=== PATIENT | female | born 1970 | race Caucasian/White ===

== ENCOUNTER 2024-12-13 12:35 | Outpatient (CLI) | payer OTHER, SELFPAY ==
--- NOTE | ~2024-12-13 | CT_ITS ---
CT of the Abdomen and Pelvis: Indication: Abdominal pain Technique: 2.5 mm axial scans were obtained through the abdomen and pelvis following intravenous adm inistration of 100 cc of Omnipaque 350. Dose reduction technique was used on this scan by utilizing a utomated exposure control and iterative reconstruction technique. The dose-length product (DLP) was 3 74.44 mGy-cm. Findings: Scans through the lung bases are unremarkable. The liver, spleen, pancreas, gallbladder, adrenals and kidneys are within normal limits. No evidence of aortic aneurysm. No lymphadenopathy. No bowel obstruction or bowel wall thickening. There is no evidence to suggest acute appendicitis. Images through the pelvis were performed. Urinary bladder unremarkable. No pelvic mass seen. No ascit es. Impression: No significant abnormalities seen. Reviewed, dictated and finalized at [facility]. ESS AND WELLNESS INSTRUCTOR Impression: No significant abnormalities seen.
--- NOTE | ~2024-12-13 | US_ITS ---
EXAMINATION: US soft tissue groin LT DATE: 12/13/2024 12:49 INDICATION: Left inguinal mass. TECHNIQUE: Multiple grayscale and Doppler ultrasound images of the left groin were obtained. COMPARISON: CT abdomen and pelvis 12/13/2024 FINDINGS: There is no abnormal mass or lymphadenopathy in the patient's area of concern in left ingui nal region. No hernia. IMPRESSION: 1. No abnormal mass or lymphadenopathy in the patient's area of concern in left inguinal region. Reviewed, dictated and finalized at location B. OR BACK END JAVA DEVELOPER
== END 2024-12-13 12:36 | disposition home or self-care (01) ==
LOC: MICIMG 12:36
PROVIDERS: PCP Family Medicine; Visit Provider Physician Assistant
DX: R10.32 Left lower quadrant pain (principal); R19.09 Other intra-abdominal and pelvic swelling, mass and lump
CPT/HCPCS: 74177; 76882; Q9967

== ENCOUNTER 2025-04-19 18:56 | Emergency (ER) | payer OTHER, SELFPAY ==
--- NOTE | ~2025-04-19 | CT_ITS ---
CT brain wo con Ordering provider: Fredrick Uriarte MD History: 54 years Female with . closed head injury . Comparison: None. Technique: CT of the head without contrast. Radiation reduction technique utilized. The dose-length p roduct was 605.33 mGy-cm. FINDINGS: BRAIN PARENCHYMA AND CSF SPACES: No midline shift, mass effect or hemorrhage. The brain parenchyma a nd CSF spaces are otherwise normal. VISUALIZED PARANASAL SINUSES: Well aerated. MASTOIDS: Well aerated. BONES: The bones appear intact. SOFT TISSUES: Visualized nasopharynx is normal. Superficial soft tissues are normal. IMPRESSION: No acute intracranial findings. Reviewed, dictated and finalized at location A.
[2025-04-19 19:00] VITALS: BP 151/81; PULSE 76; RESP 18; TEMP 36.6; O2SAT 99
[2025-04-19 19:26] VITALS: O2SAT 99
--- NOTE | 2025-04-19 19:48 | ED_ITS ---
HPI - Head Injury General Chief complaint: Head Injury Stated complaint: bumped head Time Seen by Provider: 04/19/25 19:12 History of Present Illness HPI Narrative: 54-year-old female with no pertinent past medical history presenting to the emergency department for evaluation of closed head injury that occurred on . Patient states that she smacked the back of her head against ache counter overhang quite harshly and she has been having some nauseousness and headache since. She states she feels foggy. Denies any loss consciousness or blood thinner use. She denies any other symptoms such as incoordination difficulty ambulating. No headache presently, hematoma formation or any bleeding. Does not take any anticoagulation medications. Previous to this she was otherwise in her normal state of health with no history traumatic brain injuries or concussions to her knowledge. Related Data Allergies Allergy/AdvReac Type Severity Reaction Status Date / Time fluoxetine (From [employer]) AdvReac Intermediate Nausea and Verified 04/19/25 19:29 Vomiting Review of Systems Review of Systems: As reviewed above in HPI Exam Narrative: GENERAL: [Well-appearing, well-nourished, and in no acute distress.] HEAD: [Normocephalic, atraumatic.] EYES: [PERRLA and EOMI.] ENT: Nares clear, no rhinorrhea or epistaxis. Mucous membranes moist. NECK: Supple. CHEST: [Clear to auscultation. No respiratory distress.] HEART: [Regular rate and rhythm]. No murmur heard. [Normal peripheral pulses.] ABDOMEN: [Soft, nondistended], [nontender], [No rigidity or guarding] EXTREMITIES: Normal range of motion. [No edema.] SKIN: Warm, dry, no rash. NEURO: [No focal deficits]. Alert and oriented [x3.] PSYCH: [Normal mood and affect.] Course Vital Signs Vital signs: Vital Signs Temperature 36.6 C 04/19/25 19:00 Pulse Rate 76 04/19/25 19:00 Respiratory Rate 18 04/19/25 19:00 Blood Pressure 151/81 H 04/19/25 19:00 Pulse Oximetry 99 04/19/25 19:00 Oxygen Delivery Room Air 04/19/25 19:00 Temperature 36.6 C 04/19/25 19:00 Pulse Rate 76 04/19/25 19:00 Respiratory Rate 18 04/19/25 19:00 Blood Pressure 151/81 H 04/19/25 19:00 Pulse Oximetry 99 04/19/25 19:26 Oxygen Delivery Room Air 04/19/25 19:26 MDM - Head Injury MDM Narrative Medical decision making narrative: 54-year-old female with no pertinent past medical history presenting to the emergency department after a closed head injury that occurred several days ago. She hit the back of her head against a counter quite harshly while she was ascending while bending over. She states she has been feeling foggy and nauseous since then but has not had any vomiting. No present headache. No blood thinner use. She is a benign normal neurological examination with vital signs they were reassuring without any significant hypertension, tachycardia, fever, hypoxia. Given the mechanism injury but reassuring examination suspicion presently is for up concussion versus postconcussive syndrome versus less likely skull fracture or traumatic brain injury/intracranial pathology such as a bleed. CT that was obtained. Patient will be re-evaluated afterwards and discharged upon negative imaging with return precautions and concussion care instructions. CT scan was unremarkable for any injury. Patient was encouraged to refrain from strenuous or exertional activities and given concussion care instructions. She was discharged home at this time with return precautions and follow-up instructions with PCP. Medical Records Attestation: I reviewed the patient's medical records. Imaging Data Attestation: I personally reviewed and interpreted this imaging study as follows: My impression: Impressions Head CT 04/19/25 19:52 IMPRESSION: No acute intracranial findings. Discharge Plan Discharge Clinical Impression: Closed head injury, Concussion without loss of consciousness Patient Disposition: Home Condition: Stable Instructions: Antibiotic Form, Concussion (ED), Post Concussion Syndrome (ED) Additional Instructions: Follow-up with your regular doctor, symptoms of a concussion last several weeks. Take Tylenol for any aches or pains in the head or neck. Return with any emergent concerns. Patient Language: Latvian Follow-up/Referrals: Gorge Hahn M.D. [Primary Care Provider] - Time of Disposition: 20:13
== END 2025-04-19 22:22 | disposition home or self-care (01) ==
PROVIDERS: Emergency Provider Student in an Organized Health Care Education/Training Program; PCP Family Medicine
DX: S06.0X0A Concussion without loss of consciousness, initial encounter (principal); W22.01XA Walked into wall, initial encounter
CPT/HCPCS: 70450; 99284

== ENCOUNTER 2025-04-29 11:15 | Emergency (ER) | payer OTHER, SELFPAY ==
--- NOTE | ~2025-04-29 | CT_ITS ---
EXAMINATION: CT brain wo con DATE: 04/29/2025 12:02 INDICATION: Head injury presenting with dizziness and weakness TECHNIQUE: Computed tomography (CT) of the head was performed without intravenous contrast. Sagittal and coronal reconstructions were performed. The mA was adjusted according to patient size. Iterative reconstruction technique was employed. The dose-length product was 605.33 mGy-cm. COMPARISON: head CT dated 04/19/25 FINDINGS: No fracture. No acute intracranial hemorrhage, acute infarction or abnormal extra axial fluid collect ion. Ventricles are normal and symmetric. No mass/mass effect. The orbits, paranasal sinuses and mast oid air cells are normal. IMPRESSION: 1. No fracture or acute intracranial process. Reviewed, dictated and finalized at location A.
[2025-04-29 11:22] VITALS: BP 157/92; PULSE 99; RESP 10; TEMP 36.6; O2SAT 100
[2025-04-29 11:31] VITALS: PULSE 93
--- NOTE | 2025-04-29 11:50 | ECG_ITS ---
Test Date: 2025-04-29 11:28:24 Measurements Intervals [place] Rate: 96 P: 61 AR: 119 QRS: 33 QRSD: 92 T: 39 QT: 338 QTc: 428 Interpretive Statements SINUS RHYTHM WITH SHORT AR INTERVAL INCOMPLETE RIGHT BUNDLE BRANCH BLOCK BORDERLINE ST ABNORMALITY- INF/LAT LEADS BORDERLINE ECG No previous ECG available for comparison Electronically Signed On 04-29-2025 12:09:03 CDT by Issac Javier D.O.
[2025-04-29] MEDS: SODIUM CHLORIDE 0.9% IV 1,000 ML 999 ML IV CONT (11:57)
--- NOTE | 2025-04-29 12:08 | ED_ITS ---
HPI - Weakness General Chief complaint: Weakness Stated complaint: post concussion symptoms Time Seen by Provider: 04/29/25 11:25 Source: patient, RN notes reviewed and old records reviewed Mode of arrival: ambulatory Limitations: no limitations History of Present Illness HPI Narrative: THis is a 54 year old female who presents for evaluation of weakness and lightheadedness. She states that [facility] she suffered a head injury. She accidentally hit her head on granite and she developed symptoms of dizziness, tinnitis, weakness. She was evaluated in [place] [facility] and she had negative CT brain. She was diagnosed with concussion. She states she was doing better until yesterday. She reports she was extremely active over the weekend and she woke up with weakness yesterday. She states she was having trouble getting out of bed and she was lightheaded. She reports this morning she still has lightheadedness with standing. She denies focal weakness, headache, chest pain, shortness of breath. Related Data Allergies Allergy/AdvReac Type Severity Reaction Status Date / Time fluoxetine (From Prozac) AdvReac Intermediate Nausea and Verified 04/19/25 19:29 Vomiting PMFSH Past Medical History Medical History (Updated 04/29/25 @ 14:15 by Kim Renee MD) Patient denies medical problems Exam 2 Const: General: no acute distress and alert Nutritional Appearance: well nourished Orientation/consciousness: patient oriented x3 HENMT: Head: normal to inspection Ears: external ears normal and TM's normal bilaterally Face and sinus: normal facial exam Eyes: Pupils: Equal, round and reactive pupils present EOM: EOMs intact bilaterally Neck: Neck: normal visual inspection Chest: Chest palpation & inspection: normal inspection of the chest Resp: Effort & Inspection: normal respiratory effort Auscultation: clear to auscultation bilaterally Cardio: Rate: regular rate Rhythm: regular rhythm Heart sounds: no murmurs GI: GI Palp: Yes Soft to palpation, No Tenderness to palpation present (GI), No Guarding due to palpation present (GI) and No Rigid due to palpation A uscultation: normal bowel sounds Skin: General skin exam: normal color Rashes: no rashes Neuro: General: patient oriented x3 and moves all extremities Cranial nerves: Yes CN's II-XII intact bilaterally, Yes Equal, round and reactive pupils present and Yes Nystagmus not present Cognition (Neuro): normal cognition Speech: normal speech Gait exam (Neuro): Normal gait present Motor exam (neuro): 5/5 motor strength present throughout, Pronator motor function not present and No tremor noted Sensory Exam: normal sensation Coordination: f [id number] test normal and [id number]-[id number] test normal Extrem: General: normal to inspection Psych: Mental Status: mental status grossly normal Affect: normal affect Attitude: cooperative Course Reevaluation(s) Reevaluation #1: Patient states she feels better. I spoke with her about labs and possible causes of her symptoms. She reports blood pressure was 100/50 so she may have been lightheaded due to dehydration. She was given IV fluids. I discussed no sign of arrhythmia at this point. No sign of stroke on examination. She will follow up with her PCP regarding her concerns. Date: 04/29/25 Time: 14:12 Vital Signs Vital signs: Vital Signs Temperature 97.9 F 04/29/25 11:22 Pulse Rate 99 04/29/25 11:22 Respiratory Rate 10 L 04/29/25 11:22 Blood Pressure 157/92 H 04/29/25 11:22 Pulse Oximetry 100 04/29/25 11:22 Oxygen Delivery Room Air 04/29/25 11:22 Temperature 97.9 F 04/29/25 11:22 Pulse Rate 79 04/29/25 14:48 Respiratory Rate 12 04/29/25 14:48 Blood Pressure 148/85 H 04/29/25 14:48 Pulse Oximetry 100 04/29/25 14:48 Oxygen Delivery Room Air 04/29/25 11:22 MDM - Weakness Differential Diagnosis Differential diagnosis: Likely acute myocardial infarction, anemia, hypoglycemia, sepsis and dehydration Medical Records Attestation: I reviewed the patient's medical records. Lab Data Attestation: I reviewed the patient's lab results. 04/29/25 11:56 04/29/25 11:56 Labs: Lab Results 04/29/25 Range/Units 11:56 WBC 8.4 (4.5-10.0) K/mm3 RBC 4.97 (4.2-5.4) M/mm3 Hgb 14.5 (12.0-15.0) g/dL Hct 44.5 (37.0-47.0) % MCV 89.5 (80-100) fl MCH 29.2 (26-34) pg MCHC 32.6 (32-36) g/dl RDW 13.3 (11.5-14.5) % Plt Count 267 (150-375) k/mm3 MPV 9.9 (7.4-10.4) fl Immature Gran % (Auto) 0.1 (0-0.5) % Neut % (Auto) 67.1 (45.5-73.1) % Lymph % (Auto) 25.7 (18.3-44.2) % [place] % (Auto) 6.1 (2.6-8.5) % Eos % (Auto) 0.5 (0-4.4) % Baso % (Auto) 0.5 (0.2-1.2) % Lymph # (Auto) 2.16 (0.9-3.2) K/mm3 [place] # (Auto) 0.5 (0.1-0.6) K/mm3 Eos # (Auto) 0.0 (0-0.3) K/mm3 Baso # (Auto) 0.0 (0.0-0.1) K/mm3 Abs Immat Gran (auto) 0.01 (0.00-0.031) K/mm3 Absolute Neuts (auto) 5.6 (1.3-6.7) K/mm3 Absolute Nucleated RBC 0.000 (0.0-0.012) K/mm3 Nucleated RBC % 0.0 (0.0-0.2) % PT 12.8 (11.1-14.7) Seconds INR 1.0 APTT 25.7 (22.3-36.8) Seconds Sodium 137 (137-145) mmol/L Potassium 3.6 (3.4-5.0) mmol/L Chloride 104 (98-107) mmol/L Carbon Dioxide 25 (22-30) mmol/L Anion Gap 8 (4-12) mmol/L BUN 9 (7-17) mg/dL Creatinine 0.66 L (0.7-1.0) mg/dL Estim Creat Clear Calc 77 ml/min Estimated GFR > 60 (59 - ) Glucose 110 (65-110) mg/dL Calcium 9.9 (8.4-10.2) mg/dL Total Bilirubin 0.5 (0.2-1.3) mg/dL AST 31 (14-36) U/L ALT 27 (6-35) U/L Alkaline Phosphatase 69 (38-126) U/L Troponin I < 0.012 (0.000-0.034) ng/mL Total Protein 8.3 H (6.3-8.2) g/dL Albumin 5.0 (3.5-5.1) g/dL Imaging Data Radiologist's impression: ITS Impressions Head CT 04/29/25 12:06 IMPRESSION: 1. No fracture or acute intracranial process. ECG Data EKG #1: Attestation: I personally reviewed and interpreted this ECG as follows: ECG completion date: 04/29/25 ECG completion time: 11:28 EKG Interpretation: normal rate, sinus rhythm (96) and NL axis Discharge Plan Discharge Clinical Impression: Dizziness Patient Disposition: Home Condition: Stable Instructions: General Patient Instructions, Post Concussion Syndrome (ED), Fatigue (ED) Additional Instructions: Stay hydrated follow up with your primary care provider Patient Language: Tamazight Follow-up/Referrals: Gorge Hahn M.D. [Primary Care Provider] -
[2025-04-29 12:10] LABS: Basophils Percent Auto 0.5 % (0.2-1.2); Eosinophils Percent Auto 0.5 % (0-4.4); Hematocrit 44.5 % (37.0-47.0); Hemoglobin 14.5 g/dL (12.0-15.0); Immature Granulocyte Absolute 0.01 K/mm3 (0.00-0.031); Immature Granulocyte Percent A 0.1 % (0-0.5); Lymphocytes Absolute Auto 2.16 K/mm3 (0.9-3.2); Lymphocytes Percent Auto 25.7 % (18.3-44.2); Mean Corpuscular HGB Conc 32.6 g/dl (32-36); Mean Corpuscular Hemoglobin 29.2 pg (26-34); Mean Corpuscular Volume 89.5 fl (80-100); Mean Platelet Volume 9.9 fl (7.4-10.4); Monocytes Absolute Auto 0.5 K/mm3 (0.1-0.6); Monocytes Percent Auto 6.1 % (2.6-8.5); Neutrophils Absolute Auto 5.6 K/mm3 (1.3-6.7); Neutrophils Percent Auto 67.1 % (45.5-73.1); Platelet Count Result 267 k/mm3 (150-375); Red Blood Count 4.97 M/mm3 (4.2-5.4); Red Cell Distribution Width 13.3 % (11.5-14.5); White Blood Count 8.4 K/mm3 (4.5-10.0)
[2025-04-29 12:21] LABS: Prothrombin Time 12.8 Seconds (11.1-14.7)
[2025-04-29 12:22] LABS: Alanine Aminotransferase 27 U/L (6-35); Alkaline Phosphatase 69 U/L (38-126); Anion Gap 8 mmol/L (4-12); Aspartate Amino Transferase 31 U/L (14-36); Bilirubin,Total 0.5 mg/dL (0.2-1.3); Blood Urea Nitrogen 9 mg/dL (7-17); Calcium 9.9 mg/dL (8.4-10.2); Carbon Dioxide 25 mmol/L (22-30); Chloride 104 mmol/L (98-107); Estimated CRCL calculation 77 ml/min; Estimated Glomerular Filt Rate > 60; Glucose 110 mg/dL (65-110); Partial Thromboplastin Time 25.7 Seconds (22.3-36.8); Potassium 3.6 mmol/L (3.4-5.0); Sodium 137 mmol/L (137-145); Total Protein 8.3 g/dL (6.3-8.2)
[2025-04-29 12:25] VITALS: BP 132/78; PULSE 88
[2025-04-29 12:26] VITALS: BP 126/84; BP 137/87; PULSE 88; PULSE 89; PULSE 94; RESP 18; O2SAT 99
[2025-04-29 12:38] LABS: Troponin I < 0.012 ng/mL (0.000-0.034)
[2025-04-29 14:48] VITALS: BP 148/85; PULSE 79; RESP 12; O2SAT 100
== END 2025-04-29 14:50 | disposition home or self-care (01) ==
PROVIDERS: Emergency Provider General Practice; PCP Family Medicine
DX: R42 Dizziness and giddiness (principal)
CPT/HCPCS: 36415; 70450; 80053; 84484; 85025; 85610; 85730; 93005; 96360; 99284; J7030

== ENCOUNTER 2025-05-26 12:39 | Outpatient (CLI) | payer OTHER, SELFPAY ==
--- NOTE | ~2025-05-26 | MR_ITS ---
EXAMINATION: MR brain/brain stem wo/w con DATE: 05/26/2025 13:49 INDICATION: Concussion TECHNIQUE: Magnetic resonance imaging (MRI) of the brain and brainstem was performed without and with 13 mL Multihance intravenous contrast. Sequences included sagittal and axial T1-weighted SE, axial d iffusion-weighted FS SE, axial 3D SWAN, axial T2-weighted FLAIR, and axial T2-weighted FSE. Postcontr ast axial and coronal T1-weighted SE was obtained. Apparent diffusion coefficient (ADC) maps were cre ated. COMPARISON: Head CT dated 04/29/2025 FINDINGS: There are no areas of restricted diffusion to suggest acute infarction. No intracranial hemorrhage or abnormal intracranial mass lesion. There are a few small scattered foci of of nonspecific increased T2-weighted signal intensity in the cerebral white matter, predominantly involving the deep and periv entricular white matter which is within normal limits for age and likely sequela of chronic small ves jessica ischemic disease. There are no intraparenchymal signal abnormalities seen on the other pulse sequ ences. The ventricles are symmetric and normal in size. There are no abnormal extra-axial fluid colle ctions. Flow voids are seen in the cerebral arteries on the T2-weighted sequences consistent with the ir expected patency. Visualized orbits and soft tissues are unremarkable. There are no areas of abnor mal enhancement on the post contrast images. IMPRESSION: 1. Normal for age brain with a few small scattered foci of nonspecific white matter T2 hyperintensity which could represent sequela of chronic small vessel ischemic disease. Reviewed, dictated and finalized at location B. IMPRESSION: 1. Normal for age brain with a few small scattered foci of nonspecific white ma tter T2 hyperintensity which could represent sequela of chronic small vessel is chemic disease.
--- OUTSIDE RECORDS SUMMARY | 2025-05-26 12:42 | XMS_ITS | Clinical Summary ---
Author Organization [facility] Address [facility] [place] [address] Care Team Providers Care Nail Specialist Name Role Phone Gorge Hahn MD Primary Care Provider [phone] Allergies No known active allergies Medications [place]-3 Fatty Acids (FISH OIL) 500 MG capsule Take 500 mg by mouth daily. Active red yeast rice extract 600 MG Cap Take 500 mg by mouth daily. Active Cyanocobalamin (VITAMIN B-12) 50 MCG Tab Active Ascorbic Acid (VITAMIN C) 100 MG tablet Take 5 tablets (500 mg total) by mouth daily. Active Vitamin D3 (CHOLECALCIFERO L) 50 mcg tablet Take 1 tablet (50 mcg total) by mouth daily. Active CALCIUM CARB-CHOLECALCI FEROL OR Take 1 tablet by mouth daily. Active Family History Medical History Relation Comments Breast Cancer Mother Relation Status Comments Father Mother Social History Tobacco Use Types Packs/Day Years Used Date Smoking Tobacco: Never Smokeless Tobacco: Never Tobacco Cessation:Counseling Given: Not Answered Alcohol Use Standard Drinks/Week Comments Yes 0 (1 standard drink = 0.6 oz pur e alcohol) Very Rarely Comments No Sex and Gender Information Value Date Recorded Sex Assigned at Not on file Legal Sex Female 10:31 AM CDT Gender Identity Not on file Sexual Orientation Not on file Last Filed Vital Signs Vital Sign Reading Time Taken Comments Blood Pressure 145/72 06/21/2023 3:14 PM CDT Pulse 71 06/21/2023 3:14 PM CDT Temperature 36 C (96.8 F) 06/21/2023 1:53 PM CDT Respiratory Rate 17 06/21/2023 3:14 PM CDT Oxygen Saturation 97% 06/21/2023 3:14 PM CDT Inhaled Oxygen Concentration - - Weight 63.5 kg (140 lb) 06/21/2023 11:57 AM CDT Height 167.6 cm (5' 6) 06/21/2023 11:57 AM CDT Body Mass Index 22.6 06/21/2023 11:57 AM CDT Plan of Treatment Health Maintenance Due Date Last Done Comments Colorectal Cancer Screening Colonoscopy (10 Years) 1969 Annual Physical 1972 Hepatitis C 1987 DTaP, Tdap and Td Vaccines (1 - Tdap) 1988 Hepatitis B Vaccines (1 of 3 - 19+ 3-dose series) 1988 Pneumococcal Vaccine: 50+ Years (1 of 1 - PCV) 2019 Zoster Vaccines (1 of 2) 2019 COVID-19 Vaccine (1 - season) 2024 Cervical Cancer Screening Pap Smear (Age 30 to 64) Every 3 Years 02/25/2026 02/25/2023 Mammogram Screening 05/29/2026 05/29/2024, 09/08/2022, 03/20/2021, Additional history exists Cervical Cancer Screening Pap with HPV Testing (Age 30 to 64) Every 5 Years 02/26/2028 02/25/2023 Cervical Cancer Screening with HPV 02/26/2028 Meningococcal B Vaccine Aged Out No l onger eligible based on patient's age to complete this topic Meningococcal Vaccine Aged Out No jordon ayana eligible based on patient's age to complete this topic RSV Immunizations Under 20 Months Aged Out No longer eligible based on patient's age to complete this topic Procedures Procedure Name Priority Date/Time Associated Diagnosis Comments MG SCREENING W KOTA BOOKER DIGI Routine 05/29/2024 10:50 AM CDT Visit for screening mammogram HUMAN PAPILLOMAVIRUS, HIGH-RISK TYPES Routine 02/25/2023 12:00 PM CDT CYTOPATH CERV/VAG THIN LAYER Routine 02/25/2023 7:54 AM CDT Post-menopausal bleeding from Last 3 Months or Most Recently Relevant to Health Maintenance Results * MG SCREENING W KOTA BOOKER DIGI (05/29/2024 10:50 AM CDT) Anatomical Region Laterality Modality Breast Bilateral Mammography 05/30/2024 7:28 AM CDT Impressions 05/30/2024 7:31 AM CDT ===== IMPRESSION: ===== 1. Stable mammographic appearance with no new findings to suggest malignancy in either breast. Assessment: ACR BI-RADS 2 - BENIGN FINDING(S) Recommendation: 1:Routine Screening Bilateral Comments: Ordered By: GORGE HAHN Interpreted By: Ro Jaramillo, 05/30/2024 7:28 AM Narrative 05/30/2024 7:31 AM CDT EXAMINATION: Digital bilateral screening mammogram with 3-D tomosynthesis EXAM DATE/TIME: 05/29/2024 10:50 AM REASON FOR EXAM: Routine screening Benign right breast biopsy 13 years ago.. Mother with breast carcinoma at age 47 COMPARISON: 03/20/2021.. 09/08/2022 Technique: Digital screening mammography of both breasts was performed in addition to 3-D Tomosynthesis technique. This study was read with the assistance of a computer-aided detection system. Tissue density: There are scattered areas of fibroglandular density. Findings: Stable slightly asymmetric benign tissue in the upper outer quadrant of the right breast. There is no new focal asymmetry, dominant mass lesion, area of skin thickening, or cluster of suspicious appearing calcifications in either breast to suggest malignancy. us Gorge Hahn MD MAMMO Final Result * HUMAN PAPILLOMAVIRUS, HIGH-RISK TYPES (02/25/2023 12:00 PM CDT) SPEC DESCRIPTION CERVICAL/END OCERVICAL 03/01/2023 8:15 AM CDT [facility] HPV DNA HIGH RISK NEGATIVE NEGATIVE 03/02/2023 2:05 PM CDT [facility] Comment:SEE CYTOLOGY REPORT 02/25/2023 12:0 0 PM CDT us Shefali Jacobo MD PATHOLOGY/CYTOLOGY ORDERABLES Final Result [facility] [address] [place] [address], * Cytopath Cerv/Vag Thin Layer (02/25/2023 7:54 AM CDT) THIN PREP PAP [facility] [address] [place] [address] Department of Pathology Pathology Report CERVICAL/VAGINAL PAP SMEAR REPORT Name: CAITIE COHEN Age: 807/13/1970 (Age: 52) Location: [facility] Sex: F Collected Date: 02/25/2023 [facility] #: [id number] Date Received: 03/01/2023 Date Reported: 03/09/2023 Provider: SHEFALI JACOBO MD INTERPRETATION CERVICAL/ENDOCERVI CHRIS: SATISFACTORY FOR EVALUATION. ENDOCERVICAL/TRANS FORMATION ZONE COMPONENT PRESENT. NEGATIVE FOR INTRAEPITHELIAL LESION OR MALIGNANCY. NEGATIVE FOR HIGH RISK HPV. The FDA approved Aptima HPV assay is an in vitro nucleic acid amplification test for the qualitative detection of E6/E7 viral messenger RNA (mRNA) from 14 high-risk types of human papillomavirus (HPV) in cervical specimens. The high-risk HPV types detected by the assay include: 16,18,31,33,35,39, 45,51,52,56,58,59, 66, and 68. Electronically Signed Out [facility] Pan (ASCP) CLINICAL HISTORY SCREENING PAP TEST POST MENOPAUSAL BLEEDING ThinPrep Pap Test with screening HR HPV testing requested, with reflex HPV 16/18 genotyping on negative cytology, positive HR HPV Date of Last Menstrual Period: UNKNOWN Menstrual Status: Post-Menopausal SPECIMEN SUBMITTED CERVICAL/ENDOCERVI CHRIS Specimen Received:1 Thin Prep Vial, Image Assisted Pap (SMD) Please note: The Pap smear is not a diagnostic test. It is a screening test. Negative results on combined screening (Pap test and HPV-DNA) have a high negative predictive value (99.1-100 percent) for cervical cancer. The pap test is not effective in detecting cervical adenocarcinoma. [facility] 02/25/2023 7:54 AM CDT 03/01/2023 7:54 AM CDT Comment:CERVICAL/ENDOCERVICA L Shefali Jacobo MD PATHOLOGY/CYTOLOGY ORDERABLES Final Result [facility] [address] [place] [address], from Last 3 Months or Most Recently Relevant to Health Maintenance Insurance [employer] Care Teams Nail Specialist Relationship Specialty Start Date End Date Gorge Hahn MD [address] [place] [id number] PCP - General FAMILY PRACTICE 03/20/21
== END 2025-05-26 12:40 | disposition home or self-care (01) ==
PROVIDERS: PCP Family Medicine; Visit Provider Physician Assistant
DX: S06.0XAA Concussion with loss of consciousness status unknown, initial encounter (principal); X58.XXXA Exposure to other specified factors, initial encounter
CPT/HCPCS: 70553; A9577

== ENCOUNTER 2025-09-17 15:51 | Emergency (ER) | payer OTHER, SELFPAY ==
--- NOTE | ~2025-09-17 | US_ITS ---
EXAMINATION: US venous doppler LE , 09/17/2025 16:30 CDT HISTORY: left lower extremity redness, swelling Comparison: None Technique: Youngblood-scale and color Doppler images were attempted of the lower saphenofemoral junction, common femoral vein,superficial femoral vein, proximal deep femoral vein, proximal deep femoral vein, popliteal vein and posterior tibial veins. Findings: Deep Venous System:Normal flow, augmentation and compressibility. No echogenic thrombus identified. The contralateral saphenofemoral junction appears unremarkable. Superficial Venous SystemNo superficial thrombophlebitis. Soft tissues: Soft tissues are unremarkable. Impression: Negative for DVT. Correlating with the patient's area of pain there is a probable thrombosed varicose vein noted. Reviewed, dictated and finalized at location P. Impression: Negative for DVT. Correlating with the patient's area of pain there is a probable thrombosed vari cose vein noted.
[2025-09-17 16:01] VITALS: BP 117/74; PULSE 94; RESP 15; TEMP 36.6; O2SAT 100
--- OUTSIDE RECORDS SUMMARY | 2025-09-17 17:46 | XMS_ITS | Clinical Summary ---
Author Organization [facility] Address [facility] [place] [address] Care Team Providers Care Supervisor Production Name Role Phone Gorge Hahn MD Primary Care Provider [phone] Allergies No known active allergies Medications [place]-3 Fatty Acids (FISH OIL) 500 MG capsule [...] 2) 2019 COVID-19 Vaccine (1 - season) 2025 Influenza Adult (#1) 2025 Cervical Cancer Screening Pap Smear (Age 30 to 64) Every 3 Years 02/25/2026 02/25/2023 Mammogram Screening 05/29/2026 05/29/2024, 09/08/2022, 03/20/2021, Additional history exists Cervical Cancer Screening Pap with HPV Testing (Age 30 to 64) Every 5 Years 02/26/2028 02/25/2023 Cervical Cancer Screening with HPV 02/26/2028 Hepatitis A Vaccines Aged Out No long er eligible based on patient's age to complete this topic Meningococcal B Vaccine Aged Out No l [...] DESCRIPTION CERVICAL/END OCERVICAL 03/01/2023 8:15 AM CDT [facility] HPV DNA HIGH RISK NEGATIVE NEGATIVE 03/02/2023 2:05 PM CDT [facility] Comment:SEE CYTOLOGY REPORT 02/25/2023 12:0 0 PM CDT Shefali Jacobo MD PATHOLOGY/CYTOLOGY ORDERABLES Final Result [facility] [address] [place] [address], * Cytopath Cerv/Vag Thin Layer (02/25/2023 7:54 AM CDT) THIN PREP PAP [address] [address] Department of Pathology Pathology Report CERVICAL/VAGINAL PAP SMEAR REPORT Name: CAITIE COHEN Age: 807/13/1970 (Age: 52) Location: [facility] Sex: F Collected Date: 02/25/2023 [facility] #: [id number] Date Received: 03/01/2023 Date Reported: 03/09/2023 Provider: [...] 45,51,52,56,58,59, 66, and 67. Electronically Signed Out [facility]RAUL[facility] Pan (ASCP) CLINICAL HISTORY SCREENING PAP [...] is not effective in detecting cervical adenocarcinoma. [facility] 02/25/2023 7:54 AM CDT 03/01/2023 7:54 AM CDT Comment:CERVICAL/ENDOCERVICA L us Shefali Jacobo MD PATHOLOGY/CYTOLOGY ORDERABLES Final Result [facility] [address] [place] [address], from Last 3 Months or Most Recently Relevant to Health Maintenance Insurance AET Care Teams Supervisor Production Relationship Specialty Start Date End Date Gorge Hahn MD [id number] [facility] [place] [id number] PCP - General FAMILY PRACTICE 03/20/21
--- NOTE | 2025-09-17 17:47 | ED.EXTPRO ---
HPI - Extremity Problem General Chief complaint: Extremity Problem,Nontraumatic Stated complaint: varicose veins feel like their knotted up and hot Time Seen by Provider: 09/17/25 16:07 Source: patient Mode of arrival: ambulatory Limitations: no limitations History of Present Illness HPI Narrative: This is a 55-year-old female that presents to the emergency department for left lower leg swelling and redness. Reports in the area of her known varicose veins. Denies fevers. Related Data Allergies Allergy/AdvReac Type Severity Reaction Status Date / Time fluoxetine (From Prozac) AdvReac Intermediate Nausea and Verified 09/17/25 16:03 Vomiting Review of Systems Review of Systems: All systems reviewed & are unremarkable except as noted in HPI and below PMFSH Past Medical History Medical History (Updated 09/17/25 @ 17:51 by Sofie Ziegler PA-C) Patient denies medical problems Exam Narrative: GENERAL: Well-appearing, well-nourished, and in no acute distress. HEAD: Normocephalic, atraumatic. EYES: EOMI. CHEST: No respiratory distress. HEART: Regular rate EXTREMITIES: Normal range of motion. Mild edema with mild overlying redness to the left lower leg posteriorly around area of varicose veins SKIN: Warm, dry, no rash. NEURO: No focal deficits. Alert and oriented x3. PSYCH: Normal mood and affect Course Vital Signs Vital signs: Vital Signs Temperature 98 F 09/17/25 16:01 Pulse Rate 94 09/17/25 16:01 Respiratory Rate 15 09/17/25 16:01 Blood Pressure 117/74 09/17/25 16:01 Pulse Oximetry 100 09/17/25 16:01 Oxygen Delivery Room Air 09/17/25 16:01 Temperature 98 F 09/17/25 16:01 Pulse Rate 94 09/17/25 16:01 Respiratory Rate 15 09/17/25 16:01 Blood Pressure 117/74 09/17/25 16:01 Pulse Oximetry 100 09/17/25 16:01 Oxygen Delivery Room Air 09/17/25 16:01 MDM - Extremity (Nontraumatic) MDM Narrative Medical decision making narrative: Patient presents emergency department for left lower extremity redness and swelling in the area of her varicose veins. Patient is afebrile and nontoxic appearing. Venous Doppler study negative for DVT. Show likely superficial thrombophlebitis of varicose vein. Instructed on symptomatic care. Will be started on oral antibiotic. She is to follow up with her primary provider. She was given warnings to return to the ER Differential Diagnosis Differential diagnosis: Likely superficial thrombophlebitis and deep vein thrombosis of lower extremity Imaging Data Radiologist's impression: ITS Impressions Venous Doppler Study 09/17/25 17:26 Impression: Negative for DVT. Correlating with the patient's area of pain there is a probable thrombosed varicose vein noted. Critical Care Time Critical Care Time Critical Care Time: No Discharge Plan Discharge Clinical Impression: Varicose vein of leg Qualifiers: Varicose vein complication: inflammation Laterality: left Qualified Code(s): I83.12 - Varicose veins of left lower extremity with inflammation Patient Disposition: Home Condition: Stable Instructions: Antibiotic Form, Naproxen (By mouth), Venous Insufficiency (DC) Additional Instructions: Return to the ER if you experience fever, increasing redness and swelling of your extremity, numbness or any other symptoms that are concerning to you Heat to the area. Take Naproxen twice daily. Take oral antibiotic as prescribed Follow up with your doctor for further care. Patient Language: Indonesian Prescriptions: New cephalexin 500 mg capsule 500 mg PO Q6H 7 Days Qty: 28 0RF Follow-up/Referrals: Gorge Hahn M.D. [Primary Care Provider, [facility]]
== END 2025-09-17 18:15 | disposition home or self-care (01) ==
PROVIDERS: Emergency Provider Physician Assistant; PCP Family Medicine
DX: I83.12 Varicose veins of left lower extremity with inflammation (principal)
CPT/HCPCS: 93971; 99284